=== PATIENT | male | born 1945 | race Caucasian/White ===

== ENCOUNTER → 2017-04-19 | Day surgery (SDC) | payer BC ==
[~2017-04-19] MED LIST: AMLO10TA2 PO; ASCO500C PO; ASPI1TAB69 PO; GENTAMICIN SULFATE 80 MG/2 ML VIAL ONE; HYDR12.56 PO; LOSA100T PO; METF1000 PO; METO50TA11 PO; MIDAZOLAM HCL 2 MG/2 ML VIAL ONE; OCUVTAB PO; OMEP20TA PO; ONDANSETRON HCL 4 MG/2 ML VIAL IV PUSH ONE; PROPOFOL 200 MG/20 ML AMP IV ONE; SIMV20TA PO; SITA1TAB2 PO; SODIUM CHLORIDE 0.9% SOLN 100 ML BAG IV ONE
--- NOTE | 2017-04-19 11:10 | TN ---
cc: CHANDNI WADSWORTH M.D. DATE OF SURGERY 04/19/2017 PREOPERATIVE DIAGNOSIS 1. Gross hematuria (ICD-10 code of R31.0) 2. Bladder calculus (ICD-10 code of N21.0) 3. Bladder lesion (ICD-10 code D41.4) 4. Personal history of bladder cancer (Z85.51) POSTOPERATIVE DIAGNOSIS 1. Gross hematuria (ICD-10 code of R31.0) 2. Bladder calculus (ICD-10 code of N21.0) 3. Bladder lesion (ICD-10 code D41.4) 4. Personal history of bladder cancer (Z85.51) PROCEDURE 1. Cystolitholapaxy (simple) (CPT code 82716) 2. Cystourethroscopy with bladder biopsy (CPT code 04786) 3. Bladder washings per cytology (CPT code 15783) INDICATION Mr. Rivers is a 71-year-old gentleman with a previous history of bladder cancer who had recent gross hematuria. On local cystoscopy it was difficult to evaluate due to bleeding and evidence of possible stone. He presents now for definitive evaluation and potential treatment. FINDINGS The pendulous and bulbous urethra with multiple mild to moderate strictures. 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 The bladder neck was elevated, hypertrophic and closed. The trigone shows the ureteral orifice previously resected. They were golf-hole shaped and appeared to open and patent effluxing clear urine. There was some velvety erythematous tissue in areas of the trigone. The bladder itself showed mild trabeculation. No diverticula. There was a small posterior sessile lesion. No blake tumors identified. In the dependent portion of the bladder, there was a left than 1 cm irregularly shaped bladder stone. PROCEDURE The procedure, as well as the risks and benefits were explained to the patient. Informed consent was obtained. The patient was taken to the major operative theater where he was placed in a supine position. The patient was identified, as well as the operative site. A universal time-out was performed in standard fashion. At this time, general anesthetic and prophylactic intravenous antibiotics consisting of gentamicin 80 mg was administered. After adequate anesthetic, the patient was placed in the low dorsolithotomy position, prepped and draped in the usual sterile fashion. At this time, a 22.5 [place] cystoscope with a 30 degree lens was inserted into the urethra and bladder. The 30 degree lens was exchanged for the 70 degree lens. The entire bladder was systematically surveyed and photo documentation was obtained of the bladder stone and the lesions in question. At this time, using rigid biopsy forceps, the stone was able to be broken up into multiple small pieces that were then evacuated out. Then using the rigid biopsy forceps, the suspicious area in the trigone was biopsied as well as the posterior bladder wall lesion and sent for final pathological evaluation. Additionally, bladder barbotage was performed with normal saline and sent for cytological evaluation. After confirming hemostasis and no additional concerning areas, the bladder was decompressed, the cystoscope removed. The patient tolerated the procedure well, emerged from anesthetic without difficulty and transferred to the recovery room in stable condition to be discharged home when criteria is met. There are no obvious complications. MD JOSEF Denny/ALBINA /10:33 AM /10:51 AM
== END | disposition home or self-care (01) ==
LOC: ESDC 07:40
PROVIDERS: ATTEND Urology
DX: R31.0 Gross hematuria (principal); N21.0 Calculus in bladder; Z85.51 Personal history of malignant neoplasm of bladder; D41.4 Neoplasm of uncertain behavior of bladder
CPT/HCPCS: 00910; 52204; 52317; 88305; J1580; J2250; J2405; J3010